=== PATIENT | female | born 1990 | race Asian ===

== ENCOUNTER 2017-08-31 09:10 | Emergency (ER) | payer MEDICAID ==
[~2017-08-31] VITALS: Ht 165.1 cm; Wt 74.8 kg
--- NOTE | 2017-08-31 09:25 | NUR ---
PT PRESENTED TO THE ER WITH A C/O ABD PAIN SINCE YESTERDAY. PT DENIES N/V/D AT THIS TIME. 3, PARA 2, AB 0. PT DENIES PAIN OR BURNING WITH URINATION. PT AMBULATED TO BED #16 AFTER GIVING A URINE SAMPLE.
[2017-08-31] MEDS ORDERED: ONDANSETRON HCL/PF 4 MG/2 ML VIAL ONE (09:40)
[2017-08-31] MEDS ORDERED: ACETAMINOPHEN ES 500 MG TABLET ONE (09:40)
[2017-08-31 09:56] LABS: APPEARANCE,URINE Cloudy (CLEAR); BILIRUBIN,URINE Negative (NEGATIVE); BLOOD, URINE Large Ery/uL (NEGATIVE); COLOR,URINE Yellow (YELLOW); KETONES,URINE 40 (NEGATIVE); LEUKOCYTE ESTERASE ,URINE Large (NEGATIVE); NITRITE, URINE Positive (NEGATIVE); PROTEIN,URINE >=300 mg/dl (NEGATIVE); UGLUCOSE Negative (NEGATIVE); UROBILINOGEN,URINE 0.2 EU/dL (0.2)
--- NOTE | 2017-08-31 09:58 | NUR ---
US TECH AT THE BEDSIDE.
[2017-08-31] MEDS ORDERED: ONDANSETRON HCL/PF 4 MG/2 ML VIAL IVP ONE (10:00)
[2017-08-31] MEDS ORDERED: ACETAMINOPHEN ES 500 MG TABLET PO ONE (10:00)
[2017-08-31] MEDS ORDERED: IV NS 0.9% 1,000 ML BAG IV ONE (10:00)
[2017-08-31 10:05] LABS: BACTERIA,URINE Moderate /HPF (None Seen); RBC,URINE 20-50 /HPF (0-2); SQUAMOUS EPITHELIAL CELL,UR Few /HPF (None Seen)
[2017-08-31 10:06] LABS: WBC,URINE 80-100 /HPF (0-3)
--- NOTE | 2017-08-31 10:07 | NUR ---
PT AMBULATED TO THE BATHROOM WITH A STEADY GAIT. PT IS GOING TO VOID BEFORE TRANS VAG US.
--- NOTE | 2017-08-31 10:12 | NUR ---
Female senior drupal developer accompanied female patient for TRANS VAG US.
--- NOTE | 2017-08-31 10:35 | NUR ---
PT APPEARS TO BE RESTING COMFORTABLY. PT STATED THAT THE ABD PAIN IS NOW GONE.
[2017-08-31] MEDS ORDERED: CEPHALEXIN MONOHYDRATE 500 MG CAPSULE PO ONE ×2 (10:40→11:00)
[2017-08-31 10:52] VITALS: BP 131/72
== END 2017-08-31 10:53 | disposition home or self-care (01) ==
LOC: ER 09:11
DX: O23.40 Unspecified infection of urinary tract in pregnancy, unspecified trimester (principal); R10.2 Pelvic and perineal pain; Z3A.01 Less than 8 weeks gestation of pregnancy
CPT/HCPCS: 36415; 76856-TC; 81000-TC; 84702-TC; 87086-TC; 87186-TC; A4606; J2405; J7030; Z7610

== ENCOUNTER 2017-09-26 08:45 | Emergency (ER) | payer MEDICAID ==
[~2017-09-26] VITALS: Ht 162.6 cm; Wt 74.4 kg
--- NOTE | 2017-09-26 08:45 | NUR ---
C/O RIGHT FLANK PAIN RADIATES TO FRONT AND PAIN DURING URINATION X YESTERDAY, 9 WEEKS A0. A/O X4. AMBULATORY. NEG ACUTE DISTRESS. NEG SOB. AWAITING MD PARRISH. SAFETY MEASURES IN PLACE.
--- NOTE | 2017-09-26 09:04 | NUR ---
urine obtained called lab for pickup
[2017-09-26] MEDS ORDERED: CEFTRIAXONE 1GM BAG (ER ONLY) 50 ML IV ONE (09:07)
[2017-09-26] MEDS ORDERED: ACETAMINOPHEN ES 500 MG TABLET ONE (09:08)
[2017-09-26 09:17] LABS: BASOPHILS % (AUTO) 0.1 % (0.0-2.0); EOSINOPHILS % (AUTO) 0.2 % (0.0-6.0); HEMATOCRIT 39 % (33-45); HEMOGLOBIN 13.3 g/dL (11.5-14.8); LYMPHOCYTES # (AUTO) 0.5 /CMM (0.8-4.8); LYMPHOCYTES % (AUTO) 4.5 % (20.0-44.0); MEAN CORPUSCULAR HGB CONC 34 g/dl (31.0-36.0); MEAN CORPUSCULAR VOLUME 86 fL (82-100); MONOCYTES # (AUTO) 0.1 /CMM (0.1-1.30); MONOCYTES % (AUTO) 1.2 % (2.0-12.0); NEUTROPHILS # (AUTO) 10.3 /CMM (1.8-8.9); PLATELET COUNT (AUTO) 252 /CMM (150-450); RDW COEFFICIENT OF VARIATION 13.4 (11.5-15.0); RED BLOOD CELL COUNT(AUTO) 4.52 MIL/uL (4.0-5.2); WHITE BLOOD COUNT (AUTO) 10.9 K/uL (4.3-11.0)
[2017-09-26 09:26] LABS: CALCIUM, SERUM 8.9 mg/dL (8.5-10.1); CREATININE 0.6 mg/dL (0.6-1.3); POTASSIUM 3.4 mmol/L (3.5-5.1)
[2017-09-26 09:30] LABS: APPEARANCE,URINE Cloudy (CLEAR); BILIRUBIN,URINE Negative (NEGATIVE); BLOOD, URINE Moderate Ery/uL (NEGATIVE); COLOR,URINE Yellow (YELLOW); KETONES,URINE Negative (NEGATIVE); LEUKOCYTE ESTERASE ,URINE Small (NEGATIVE); NITRITE, URINE Positive (NEGATIVE); PH,URINE 7.5 (5.0-8.0); PROTEIN,URINE 100 mg/dl (NEGATIVE); UGLUCOSE Negative (NEGATIVE); UROBILINOGEN,URINE 0.2 EU/dL (0.2)
[2017-09-26] MEDS ORDERED: IV NS 0.9% 1,000 ML BAG IV ONE ×2 (09:30)
[2017-09-26] MEDS ORDERED: ACETAMINOPHEN ES 500 MG TABLET PO ONE (09:30)
[2017-09-26] MEDS ORDERED: CEFTRIAXONE 1GM BAG (ER ONLY) 1 GM/50 ML PIGGYBACK IV ONE (09:30)
[2017-09-26 09:31] LABS: ALBUMIN 3.3 g/dL (3.4-5.0); BILIRUBIN,DIRECT 0.2 mg/dL (0.0-0.2); BILIRUBIN,TOTAL 0.7 mg/dL (0.2-1.0); TOTAL PROTEIN, SERUM 7.4 g/dL (6.4-8.2)
[2017-09-26 09:41] LABS: BACTERIA,URINE Many /HPF (None Seen); RBC,URINE 30-50 /HPF (0-2); SQUAMOUS EPITHELIAL CELL,UR Few /HPF (None Seen); WBC,URINE 50-80 /HPF (0-3)
--- NOTE | 2017-09-26 09:55 | NUR ---
PT SIGNED WAIVER
--- NOTE | 2017-09-26 10:10 | NUR ---
HILDA MOLINA, TRIP # [id number], BLS UNIT [id number]
--- NOTE | 2017-09-26 10:16 | NUR ---
NUMBER FOR REPORT (ER) [phone]. ACCEPTED BY DR OLSEN
[2017-09-26 10:46] VITALS: BP 100/70
== END 2017-09-26 10:46 | disposition short-term general hospital (02) ==
LOC: ER 08:47
DX: O23.01 Infections of kidney in pregnancy, first trimester (principal); N12 Tubulo-interstitial nephritis, not specified as acute or chronic; R00.0 Tachycardia, unspecified; Z3A.01 Less than 8 weeks gestation of pregnancy
CPT/HCPCS: 36415; 76770; 76805; 80048; 80076; 81001; 83605; 85025; 87040 ×2; 87077; 87086; 87186; 93005; 96361; 96374; 99285; A4606; J0696; J7030; Z7610; 81000-TC